=== PATIENT | female | born 1980 | race Caucasian/White ===

== ENCOUNTER 2017-10-18 17:43 | Inpatient (IN) | payer OTHER ==
[~2017-10-18] VITALS: Ht 165.1 cm; Wt 67.5 kg
[2017-10-18 19:55] VITALS: BP 115/63; RESP 20
[2017-10-18 19:58] VITALS: PULSE 46
[2017-10-18 20:01] VITALS: PULSE 50
[2017-10-18 20:07] VITALS: PULSE 40
[2017-10-18] MEDS ORDERED: morphine 2 MG INJ IV PRN (20:30)
[2017-10-18] MEDS ORDERED: ONDANSETRON 4 MG INJ ONE (20:37)
[2017-10-18 21:27] LABS: BASOPHILS % 0.1 % (0.0-2.0); EOSINOPHILS % 0.2 % (0.0-7.0); HEMATOCRIT 39.7 % (37.0-47.0); HEMOGLOBIN 13.6 g/dl (12.0-16.0); LYMPHOCYTES # 1.2 10^3/ul (0.8-2.9); LYMPHOCYTES % 13.9 % (15.0-51.0); MEAN CORPUSCULAR HEMOGLOBIN 31.9 pg (29.0-33.0); MEAN CORPUSCULAR HGB CONC 34.3 g/dl (32.0-37.0); MEAN PLATELET VOLUME 12.6 fl (7.4-10.4); MONOCYTE # 0.4 10^3/ul (0.3-0.9); MONOCYTES % 4.2 % (0.0-11.0); NEUTROPHIL # 6.9 10^3/ul (1.6-7.5); NEUTROPHILS % 81.4 % (39.0-77.0); PLATELET COUNT 249 10^3/UL (140-415); RED BLOOD COUNT 4.27 10^6/ul (4.20-5.40); RED CELL DISTRIBUTION WIDTH 12.7 % (11.5-14.5); WHITE BLOOD COUNT 8.5 10^3/ul (4.8-10.8)
[2017-10-18 22:01] LABS: ALANINE AMINOTRANSFERASE 38 IU/L (13-69); ALBUMIN/GLOBULIN RATIO 1.48; ALKALINE PHOSPHATASE 55 IU/L (42-121); ANION GAP 13 (8-16); ASPARTATE AMINO TRANSFERASE 24 IU/L (15-46); BILIRUBIN,INDIRECT 0.4 mg/dl (0-1.1); BILIRUBIN,TOTAL 0.4 mg/dl (0.2-1.3); BLOOD UREA NITROGEN 9 mg/dl (7-20); CALCIUM 8.9 mg/dl (8.4-10.2); CARBON DIOXIDE 25 mmol/L (21-31); CHLORIDE 106 mmol/L (97-110); CHOL/HDL RATIO 3.1 RATIO; CHOLESTEROL 181 mg/dl (100-200); CREATININE 0.68 mg/dl (0.44-1.00); GLUCOSE 93 mg/dl (70-220); HDL CHOLESTEROL 58 mg/dl (34-82); POTASSIUM 4.2 mmol/L (3.5-5.1); SODIUM 140 mmol/L (135-144); TOTAL PROTEIN 6.7 g/dl (6.1-8.1); TRIGLYCERIDES 49 mg/dl (0-149)
[2017-10-18 22:02] VITALS: Ht 165.1 cm; Wt 67.5 kg
[2017-10-18 22:13] LABS: TROPONIN-I < 0.012 ng/ml (0.00-0.12)
[2017-10-18 23:46] VITALS: BP 101/64; RESP 20
[2017-10-19] VITALS (12 sets, daily range): BP systolic 93–109; BP diastolic 60–82; PULSE 40–50; RESP 16–20
[2017-10-19] MEDS ORDERED: ONDANSETRON 4 MG INJ ONE (00:53)
[2017-10-19] MEDS: DEXTROSE 5%-0.45% NACL 1,000 ML IV SCH ×3 (02:15→15:50)
[2017-10-19] MEDS ORDERED: METOCLOPRAMIDE 10 MG INJ IV PRN (02:30)
[2017-10-19] MEDS ORDERED: ONDANSETRON INJ 8 MG in DEXTROSE 5% 50 ML IV PRN ×2 (02:30→05:30)
[2017-10-19] MEDS: ONDANSETRON 4 MG INJ IV PRN ×2 (05:16→05:17)
[2017-10-19 07:30] LABS: BASOPHILS % 0.2 % (0.0-2.0); EOSINOPHILS # 0.1 10^3/ul (0.0-0.5); EOSINOPHILS % 1.1 % (0.0-7.0); HEMATOCRIT 38.4 % (37.0-47.0); HEMOGLOBIN 12.7 g/dl (12.0-16.0); LYMPHOCYTES # 2.6 10^3/ul (0.8-2.9); MEAN CORPUSCULAR HEMOGLOBIN 31.2 pg (29.0-33.0); MEAN CORPUSCULAR HGB CONC 33.1 g/dl (32.0-37.0); MEAN CORPUSCULAR VOLUME 94.3 fl (82.0-101.0); MEAN PLATELET VOLUME 12.6 fl (7.4-10.4); MONOCYTE # 0.6 10^3/ul (0.3-0.9); MONOCYTES % 7.5 % (0.0-11.0); NEUTROPHIL # 4.8 10^3/ul (1.6-7.5); NEUTROPHILS % 58.8 % (39.0-77.0); PLATELET COUNT 214 10^3/UL (140-415); RED BLOOD COUNT 4.07 10^6/ul (4.20-5.40); RED CELL DISTRIBUTION WIDTH 12.8 % (11.5-14.5); WHITE BLOOD COUNT 8.2 10^3/ul (4.8-10.8)
[2017-10-19 07:48] LABS: ALBUMIN 3.4 g/dl (3.3-4.9); ALBUMIN/GLOBULIN RATIO 1.21; BILIRUBIN,INDIRECT 0.6 mg/dl (0-1.1); BILIRUBIN,TOTAL 0.6 mg/dl (0.2-1.3); CALCIUM 8.6 mg/dl (8.4-10.2); CHOL/HDL RATIO 3.2 RATIO; CREATININE 0.77 mg/dl (0.44-1.00); POTASSIUM 3.9 mmol/L (3.5-5.1); TOTAL PROTEIN 6.2 g/dl (6.1-8.1)
[2017-10-19 08:13] LABS: THYROID STIMULATING HORMONE 1.84 MIU/L (0.465-4.680)
--- NOTE | 2017-10-19 10:24 | HP ---
Date/Time of Note Date/Time of Note DATE: 10/19/17 TIME: 10:16 Assessment/Plan VTE Prophylaxis VTE Prophylaxis Intervention: heparin Lines/Catheters IV [facility]from [facility] Saline Lock Urinary Cath still in place: No Assessment/Plan Assessment/Plan 1. Syncope, most likely secondary to bradycardia -Questionable sick sinus syndrome -Continue telemetry monitoring -Check thyroid profile -Trend troponin -Obtain 2D echo to see if there is any structural heart disease contributing to her syncope -Cardiology consult HPI/ROS Admit Date/Time Admit Date/Time Oct 18, 2017 at 19:30 Hx of Present Illness This is a 37-year-old female with no significant past medical history who initially presented to [place] complaining of loss of consciousness. She was transferred to [facility] for insurance reasons. She said that she had 2 episodes of syncope over a period of 1 months. The first 1 occurred a month ago while she was brushing her teeth in the bathroom. At that time and she found herself on the floor. She does not know for sure for how long she had a loss of consciousness. The next episode occurred yesterday. She said she was standing up talking to a scrap sorter or some type of a workman in at her house when she felt slightly lightheaded and had a brief loss of consciousness lasting a few seconds. She denied chest pain, palpitations, shortness of breath. She does not smoke marijuana occasionally otherwise she denied any other illicit drug use. She also denied being under the influence of alcohol at that time. At [place], EKG shows sinus bradycardia with a heart rate of 47. First troponin was negative. CBC and CMP were within normal limits except slightly elevated WBC of 10.7. Chest x-ray was clear. Once admitted here, she was noted to be bradycardic with the lowest heart rate being 40. PMH/Family/Social Social History Smoking Status: Former smoker Exam/Review of Systems Vital Signs Vitals Vital Signs Date Time Temp Pulse Resp B/P Pulse Ox O2 Delivery O2 Flow Rate FiO2 10/19/17 08:00 45 10/19/17 07:59 97.4 18 109/64 98 Intake and Output 10/18/17 10/18/17 10/19/17 14:59 22:59 06:59 Intake Total 625 ml Balance 625 ml Exam Constitutional: alert, oriented, well developed Head: atraumatic, normocephalic Eyes: EOMI, PERRL Respiratory: clear to auscultation, normal air movement Cardiovascular: other (Bradycardic with regular rhythm) Gastrointestinal: non-tender, soft Extremities: normal pulses Labs Result Diagram: 10/19/1762810/19/17628 Medications Medications Current Medications Morphine Sulfate (morphine) 2 mg Q4H PRN IV pain; Start 10/18/17 at 20:30 Ondansetron HCl (Zofran Inj) 4 mg Q6H PRN IV NAUSEA AND/OR VOMITING Last administered on 10/19/17 05:17; Admin Dose 4 MG; Start 10/18/17 at 20:30 Metoclopramide HCl 10 mg 10 mg Q6H PRN IV N/V; Start 10/19/17 at 02:30 Dextrose/Sodium Chloride 1,000 ml @ 75 mls/hr [id number] IV Last administered on 10/19/17 02:15; Admin Dose 75 MLS/HR; Start 10/19/17 at 02:30 Ondansetron HCl/ Dextrose (Zofran Inj/D5W) 54 ml @ 108 mls/hr Q6H PRN IV NAUSEA AND/OR VOMITING; Start 10/19/17 at 05:30 DANIEL RODRIGUEZ MD Oct 19, 2017 10:24
--- NOTE | 2017-10-19 14:33 | PN ---
Date/Time of Note Date/Time of Note DATE: 10/19/17 TIME: 14:31 Assessment/Plan VTE Prophylaxis VTE Prophylaxis Intervention: SCD's Lines/Catheters IV C[facility]ter Type (from [facility]): Saline Lock Urinary Cath still in place: No Assessment/Plan Chief Complaint/Hosp Course Assessment and plan 1. Syncope suspect secondary to bradycardia. Continue telemetry monitoring. Secure Software Assessor follow. Follow-up echocardiogram. 2. Bradycardia. Etiology unknown. We will get hearing aid assistant to follow. Will follow up. Disposition and plan: Continue telemetry monitoring. Follow-up with hearing aid assistant or conditions. Discussed plan of care with Dr. Blackwell Problems: Subjective 24 Hr Interval Summary Free Text/Dictation Reports having some nausea. No other reports of syncope at this time. Exam/Review of Systems Vital Signs Vitals Vital Signs Date Time Temp Pulse Resp B/P Pulse Ox O2 Delivery O2 Flow Rate FiO2 10/19/17 12:01 98.4 50 16 93/60 97 Intake and Output 10/18/17 10/18/17 10/19/17 15:00 23:00 07:00 Intake Total 625 ml Balance 625 ml Exam Constitutional: alert, oriented Psych: nl mood/affect Head: normocephalic Eyes: nl conjunctiva Neck: non-tender, supple Respiratory: clear to auscultation Cardiovascular: other (Bradycardia) Gastrointestinal: non-tender, soft Musculoskeletal: nl extremities to inspection, nl gait and stance Neurological: SOAKING ROOM OPERATOR II-XII intact, nl mental status, nl speech Skin: nl turgor Results Result Diagram: 10/19/17 0629 10/19/17 0629 Results 24 hrs Laboratory Tests Test 10/18/17 20:59 10/19/17 03:00 10/19/17 06:29 White Blood Count 8.5 8.2 Red Blood Count 4.27 4.07 L Hemoglobin 13.6 12.7 Hematocrit 39.7 38.4 Mean Corpuscular Volume 93.0 94.3 Mean Corpuscular Hemoglobin 31.9 31.2 Mean Corpuscular Hemoglobin Concent 34.3 33.1 Red Cell Distribution Width 12.7 12.8 Platelet Count 249 214 Mean Platelet Volume 12.6 H 12.6 H Neutrophils % 81.4 H 58.8 Lymphocytes % 13.9 L 32.0 Monocytes % 4.2 7.5 Eosinophils % 0.2 1.1 Basophils % 0.1 0.2 Nucleated Red Blood Cells % 0.0 0.0 Neutrophils # 6.9 4.8 Lymphocytes # 1.2 2.6 Monocytes # 0.4 0.6 Eosinophils # 0.0 0.1 Basophils # 0.0 0.0 Nucleated Red Blood Cells # 0.0 0.0 Sodium Level 140 140 Potassium Level 4.2 3.9 Chloride Level 106 107 Carbon Dioxide Level 25 24 Anion Gap 13 13 Blood Urea Nitrogen 9 9 Creatinine 0.68 0.77 Glucose Level 93 95 Hemoglobin A1c 5.1 5.0 Calcium Level 8.9 8.6 Total Bilirubin 0.4 0.6 Direct Bilirubin 0.00 0.00 Indirect Bilirubin 0.4 0.6 Aspartate Amino Transf (AST/SGOT) 24 30 Alanine Aminotransferase (ALT/SGPT) 38 33 Alkaline Phosphatase 55 42 Troponin I < 0.012 < 0.012 Total Protein 6.7 6.2 Albumin 4.0 3.4 Globulin 2.70 2.80 Albumin/Globulin Ratio 1.48 1.21 Triglycerides Level 49 63 Cholesterol Level 181 135 LDL Cholesterol, Calculated 113 81 HDL Cholesterol 58 41 # Cholesterol/HDL Ratio 3.1 3.2 Thyroid Stimulating Hormone (TSH) 1.350 1.840 Free Thyroxine 1.25 Medications Medications Current Medications Morphine Sulfate (morphine) 2 mg Q4H PRN IV pain; Start 10/18/17 at 20:30 Ondansetron HCl (Zofran Inj) 4 mg Q6H PRN IV NAUSEA AND/OR VOMITING Last administered on 10/19/17 05:17; Admin Dose 4 MG; Start 10/18/17 at 20:30 Metoclopramide HCl 10 mg 10 mg Q6H PRN IV N/V; Start 10/19/17 at 02:30 Dextrose/Sodium Chloride 1,000 ml @ 75 mls/hr [id number] IV Last administered on 10/19/17 02:15; Admin Dose 75 MLS/HR; Start 10/19/17 at 02:30 Ondansetron HCl/ Dextrose (Zofran Inj/D5W) 54 ml @ 108 mls/hr Q6H PRN IV NAUSEA AND/OR VOMITING; Start 10/19/17 at 05:30 KISHA MCGRAW Oct 19, 2017 14:33
--- NOTE | 2017-10-19 15:05 | RADRPT ---
PROCEDURE: US carotid arteries. CLINICAL INDICATION: Dizziness. Syncope. TECHNIQUE: Multiple sonographic images of the carotid arteries and vertebral arteries were obtaine d utilizing saldivar scale, duplex, and color-flow imaging. The images were reviewed on a PACS workstati on. COMPARISON: No prior studies are available for comparison. FINDINGS: Evaluation of the right carotid bifurcation region reveals mild atherosclerotic disease. Evaluation of the left carotid bifurcation region reveals mild atherosclerotic disease. There is antegrade flow within the vertebral arteries bilaterally. RIGHT CAROTID MEASUREMENTS: Common Carotid [id number] (cm/sec) Internal Carotid Artery 79 (cm/sec) External Carotid Artery 98 (cm/sec) Vertebral Artery 50 (cm/sec) Internal Carotid/Common Carotid0.9 LEFT CAROTID MEASUREMENTS: Common Carotid [id number] (cm/sec) Internal Carotid Artery 93 (cm/sec) External Carotid Artery 106 (cm/sec) Vertebral Artery 56 (cm/sec) Internal Carotid/Common Carotid1.2 Validated velocity measurements with angiographic measurements. Velocity criteria are extrapolated f rom diameter data as defined by the Society of Radiologists in Ultrasound Consensus Conference. Radi ology 2003; 229;340-346. This study does indirectly reference the measurement of the distal ICA milton meter as the denominator for stenosis measurement. IMPRESSION: 1. Less than 50% stenosis bilaterally in the internal carotid arteries. 2. Normal antegrade flow in the vertebral arteries bilaterally. RPTAT: QQ SRU Consensus Conference Criteria for the Diagnosis of Carotid Artery Stenosis* Degree of Stenosis, % ICA PSV, cm/sec Plaque Estimate, % ICA/CCA PSV Ratio Normal <125 None <2.0 <50 <125 <50 <2.0 50 69 125-230 >50 2.0-4.0 >70 but less than near occlusion >230 >50 <4.0 Near occlusion High, low, or undetectable Visible Variable Total occlusion Undetectable Visible, no detectable lumen Not applicable *Cartoid artery stenosis: saldivar-scale and Doppler US diagnosis. Society of Radiologists in Ultrasound Consensus Conference. Radiology 2003; 229: 340-346 .Bubba Crystal MD, Date Time Electronically viewed and signed by .Bubba Crystal MD, on 10/19/2017 15:05 .R/
--- NOTE | 2017-10-19 16:28 | RADRPT ---
Echocardiogram Report Patient Name: FARHEEN MAGANA Gender: Female Date: 1980 Study Date: 19-Oct-2017 Revenue Audit Clerk: Francisco Elliott [facility] Location: [facility] Ref. Physician: DANIEL RODRIGUEZ Quality: Good Procedures: Transthoracic echocardiogram with complete 2D, M-Mode, and doppler examination. Indications: Bradycardia. Syncope. 2D/M Mode Doppler Measurement Value Normal Ranges Measurement Value Normal Ranges LVIDd 2D 4.3 3.5 - 5.6 cm AV Peak Justin 1.3 m/sec LVIDs 2D 2.6 2.1 - 4.1 cm AV Peak PG 6.3 mmHg LVPWd 2D 1.0 0.6 - 1.1 cm LVOT Peak Justin 1.1 m/sec IVSd 2D 1.0 0.6 - 1.1 cm LVOT Peak PG 5.0 mmHg AoR Diam 2D 2.5 2.0 - 3.7 cm MV E Peak Justin 0.9 m/sec EDV 2D 82.7 cm3 MV A Peak Justin 0.4 m/sec ESV 2D 16.9 cm3 MV E/A 2.3 LA Dimen 2D 3.4 2.3 - 4.0 cm MV Decel Time 211 msec MV Decel Cabell 4 MV E/A 2.3 TR Peak Justin 2.2 m/sec TR Peak PG 18.6 mmHg RVSP 22.0 mmHg Findings Left Ventricle: Normal left ventricular systolic function. Normal left ventricular cavity size. Normal left ventricular wall thickness. Ejection fraction is visually estimated at 6065 %. Tissue Doppler/Mitral Doppler indices are within normal limits. Right Ventricle: Normal right ventricular size. Normal right ventricular systolic function. Left Atrium: The left atrium is normal in size. Right Atrium: The right atrium is normal in size. Mitral Valve: Normal appearance and function of the mitral valve with trace physiologic regurgitation. Aortic Valve: Normal appearance of the aortic valve. No significant aortic stenosis or insufficiency. Tricuspid Valve: Normal appearance of the tricuspid valve. Estimated peak PA systolic pressure 22 mmHg. There is trace tricuspid regurgitation. Pulmonic Valve: Normal pulmonic valve appearance. Pericardium: Normal pericardium with no significant pericardial effusion. Aorta: Normal aortic root. IVC: Normal size and normal respiratory collapse consistent with normal right atrial pressure. Conclusions 1.The left ventricle is normal in size and systolic function. 2.Estimated left ventricular ejection fraction of 60-65%. Electronically Signed By: Luis Felipe Juarez 19-Oct-2017 16:28:18 -0800 Patient Name: FARHEEN MAGANA Study Date: 19-Oct-2017 [id number]
--- NOTE | 2017-10-19 19:39 | CONS ---
Date/Time of Note Date/Time of Note DATE: 10/19/17 TIME: 19:29 Assessment/Plan Assessment/Plan Chief Complaint/Hosp Course Assessment: Syncope - appears to be vagally mediated based on symptoms, uncertain trigger Sinus bradycardia - asymptomatic since admission, do not believe that sinus node dysfunction is the cause of her syncope, would not recommend permanent pacemaker at this time Recommendations: -echocardiogram normal -no additional cardiac work up at this time -can consider outpatient event monitor if recurrent symptoms Problems: Consultation Date/Type/Reason Admit Date/Time Oct 18, 2017 at 19:30 Type of Consultation: Cardiology Reason for Consultation syncope Hx of Present Illness The patient is a 37 year-old female with no significant past medical history who presented to [place] after a syncopal episode and was transferred to [facility] for further work up as she is not a [place] member. She describes feeling nauseous, lightheaded, and sweaty while talking to the lace stripper in her bathroom at home. She subsequently laid down on the floor and passed out. She previously had an episode of syncope two months ago, although she reports that she was ill at that time. On presentation to [place], her EKG showed sinus bradycardia at 47 bpm, but was otherwise normal. On manager biostatistics since admission, she has been in normal sinus rhythm and sinus bradycardia down to 40 bpm. She has remained asymptomatic. 14 point review of systems negative other than per HPI. Past Medical History Medical History: no pertinent history Past Surgical History Breast augmentation Wrist surgery secondary to fracture Family History Significant Family History: no pertinent family hx (denies family history of sudden cardiac ) Social History Alcohol Use: occasionally Smoking Status: Former smoker Drug Use: marijuana Exam/Review of Systems Vital Signs Vitals Vital Signs Date Time Temp Pulse Resp B/P Pulse Ox O2 Delivery O2 Flow Rate FiO2 10/19/17 16:00 48 10/19/17 15:46 97.9 18 106/82 98 Intake and Output 10/18/17 10/18/17 10/19/17 15:00 23:00 07:00 Intake Total 625 ml Balance 625 ml Exam Constitutional: alert, well developed Psych: nl mood/affect, no complaints Head: atraumatic, normocephalic Eyes: nl conjunctiva, nl lids ENMT: nl external ears & nose, nl nasal mucosa & septum Neck: non-tender, supple, No jvd Respiratory: clear to auscultation, normal air movement Cardiovascular: regular rate and rhythm Gastrointestinal: non-tender, soft Musculoskeletal: nl extremities to inspection Extremities: No clubbing, No cyanosis, No edema Neurological: nl mental status, nl speech Skin: nl turgor Results Result Diagram: 10/19/17 0629 10/19/17 0629 Results 24 hrs Laboratory Tests Test 10/18/17 20:59 10/19/17 03:00 10/19/17 06:29 White Blood Count 8.5 8.2 Red Blood Count 4.27 4.07 L Hemoglobin 13.6 12.7 Hematocrit 39.7 38.4 Mean Corpuscular Volume 93.0 94.3 Mean Corpuscular Hemoglobin 31.9 31.2 Mean Corpuscular Hemoglobin Concent 34.3 33.1 Red Cell Distribution Width 12.7 12.8 Platelet Count 249 214 Mean Platelet Volume 12.6 H 12.6 H Neutrophils % 81.4 H 58.8 Lymphocytes % 13.9 L 32.0 Monocytes % 4.2 7.5 Eosinophils % 0.2 1.1 Basophils % 0.1 0.2 Nucleated Red Blood Cells % 0.0 0.0 Neutrophils # 6.9 4.8 Lymphocytes # 1.2 2.6 Monocytes # 0.4 0.6 Eosinophils # 0.0 0.1 Basophils # 0.0 0.0 Nucleated Red Blood Cells # 0.0 0.0 Sodium Level 140 140 Potassium Level 4.2 3.9 Chloride Level 106 107 Carbon Dioxide Level 25 24 Anion Gap 13 13 Blood Urea Nitrogen 9 9 Creatinine 0.68 0.77 Glucose Level 93 95 Hemoglobin A1c 5.1 5.0 Calcium Level 8.9 8.6 Total Bilirubin 0.4 0.6 Direct Bilirubin 0.00 0.00 Indirect Bilirubin 0.4 0.6 Aspartate Amino Transf (AST/SGOT) 24 30 Alanine Aminotransferase (ALT/SGPT) 38 33 Alkaline Phosphatase 55 42 Troponin I < 0.012 < 0.012 Total Protein 6.7 6.2 Albumin 4.0 3.4 Globulin 2.70 2.80 Albumin/Globulin Ratio 1.48 1.21 Triglycerides Level 49 63 Cholesterol Level 181 135 LDL Cholesterol, Calculated 113 81 HDL Cholesterol 58 41 # Cholesterol/HDL Ratio 3.1 3.2 Thyroid Stimulating Hormone (TSH) 1.350 1.840 Free Thyroxine 1.25 Medications Medications Current Medications Morphine Sulfate (morphine) 2 mg Q4H PRN IV pain; Start 10/18/17 at 20:30 Ondansetron HCl (Zofran Inj) 4 mg Q6H PRN IV NAUSEA AND/OR VOMITING Last administered on 10/19/17 05:17; Admin Dose 4 MG; Start 10/18/17 at 20:30 Metoclopramide HCl 10 mg 10 mg Q6H PRN IV N/V; Start 10/19/17 at 02:30 Dextrose/Sodium Chloride 1,000 ml @ 75 mls/hr [id number] IV Last administered on 10/19/17 02:15; Admin Dose 75 MLS/HR; Start 10/19/17 at 02:30 Ondansetron HCl/ Dextrose (Zofran Inj/D5W) 54 ml @ 108 mls/hr Q6H PRN IV NAUSEA AND/OR VOMITING; Start 10/19/17 at 05:30 ABBY AKERS MD Oct 19, 2017 19:39
[2017-10-20] VITALS (8 sets, daily range): BP systolic 97–108; BP diastolic 47–67; PULSE 42–53; RESP 16–20
[2017-10-20] MEDS: DEXTROSE 5%-0.45% NACL 1,000 ML IV SCH (06:10)
[2017-10-20 07:29] LABS: BASOPHILS % 0.2 % (0.0-2.0); EOSINOPHILS # 0.1 10^3/ul (0.0-0.5); EOSINOPHILS % 1.7 % (0.0-7.0); HEMATOCRIT 38.6 % (37.0-47.0); HEMOGLOBIN 12.7 g/dl (12.0-16.0); LYMPHOCYTES # 2.3 10^3/ul (0.8-2.9); LYMPHOCYTES % 36.1 % (15.0-51.0); MEAN CORPUSCULAR HEMOGLOBIN 31.1 pg (29.0-33.0); MEAN CORPUSCULAR HGB CONC 32.9 g/dl (32.0-37.0); MEAN CORPUSCULAR VOLUME 94.4 fl (82.0-101.0); MEAN PLATELET VOLUME 12.4 fl (7.4-10.4); MONOCYTE # 0.5 10^3/ul (0.3-0.9); MONOCYTES % 7.3 % (0.0-11.0); NEUTROPHIL # 3.4 10^3/ul (1.6-7.5); NEUTROPHILS % 54.5 % (39.0-77.0); PLATELET COUNT 207 10^3/UL (140-415); RED BLOOD COUNT 4.09 10^6/ul (4.20-5.40); RED CELL DISTRIBUTION WIDTH 12.7 % (11.5-14.5); WHITE BLOOD COUNT 6.3 10^3/ul (4.8-10.8)
[2017-10-20 07:53] LABS: CALCIUM 8.8 mg/dl (8.4-10.2); CREATININE 0.74 mg/dl (0.44-1.00); POTASSIUM 4.2 mmol/L (3.5-5.1)
--- NOTE | 2017-10-20 13:39 | DS ---
Date/Time of Note Date/Time of Note DATE: 10/20/17 TIME: 13:34 Discharge Summary Admission/Discharge Info Admit Date/Time Oct 18, 2017 at 19:30 Discharge Date/Time Discharge Diagnosis 1. Syncope - appears to be vagally mediated based on symptoms, uncertain trigger 2. Sinus bradycardia - asymptomatic since admission, do not believe that sinus node dysfunction is the cause of her syncope, would not recommend permanent pacemaker at this time per cardiology Patient Condition: Good Consults lisa Juarez MD-cardiology Hospital Course The patient is a 37 year-old female with no significant past medical history who presented to [place] after a syncopal episode and was transferred to [facility] for further work up as she is not a [place] member. She describes feeling nauseous, lightheaded, and sweaty while talking to the package designer in her bathroom at home. She subsequently laid down on the floor and passed out. She previously had an episode of syncope two months ago, although she reports that she was ill at that time. On presentation to [place], her EKG showed sinus bradycardia at 47 bpm, but was otherwise normal. On awake overnight monitor since admission, she has been in normal sinus rhythm and sinus bradycardia down to 40 bpm. She has remained asymptomatic. Echocardiography and carotid ultrasound both unremarkable, TSH 1.84. The syncope is considered vasovagal. She had sinus bradycardia but awake overnight monitor does no feel it is the cause of her syncope spells. Patient is discharged home and she will follow up0 with cardiology and PCP in office. Home Meds No Active Prescriptions or Reported Meds Primary Care Provider Not On Staff Doctor Pending Labs Laboratory Tests Test 10/20/17 06:56 White Blood Count 6.310^3/ul (4.8-10.8) Red Blood Count 4.0910^6/ul (4.20-5.40) Hemoglobin 12.7g/dl (12.0-16.0) Hematocrit 38.6% (37.0-47.0) Mean Corpuscular Volume 94.4fl (82.0-101.0) Mean Corpuscular Hemoglobin 31.1pg (29.0-33.0) Mean Corpuscular Hemoglobin Concent 32.9g/dl (32.0-37.0) Red Cell Distribution Width 12.7% (11.5-14.5) Platelet Count 63888^3/UL (140-415) Mean Platelet Volume 12.4fl (7.4-10.4) Neutrophils % 54.5% (39.0-77.0) Lymphocytes % 36.1% (15.0-51.0) Monocytes % 7.3% (0.0-11.0) Eosinophils % 1.7% (0.0-7.0) Basophils % 0.2% (0.0-2.0) Nucleated Red Blood Cells % 0.0/100WBC (0.0-0.0) Neutrophils # 3.410^3/ul (1.6-7.5) Lymphocytes # 2.310^3/ul (0.8-2.9) Monocytes # 0.510^3/ul (0.3-0.9) Eosinophils # 0.110^3/ul (0.0-0.5) Basophils # 0.010^3/ul (0.0-0.1) Nucleated Red Blood Cells # 0.010^3/ul (0.0-0.0) Sodium Level 142mmol/L (135-144) Potassium Level 4.2mmol/L (3.5-5.1) Chloride Level 107mmol/L (97-110) Carbon Dioxide Level 29mmol/L (21-31) Anion Gap 10 (8-16) Blood Urea Nitrogen 8mg/dl (7-20) Creatinine 0.74mg/dl (0.44-1.00) Glucose Level 116mg/dl (70-220) Calcium Level 8.8mg/dl (8.4-10.2) NAHUN SHAH MD Oct 20, 2017 13:39
== END 2017-10-20 14:20 | disposition home or self-care (01) | DRG 312 ==
LOC: TEL 19:30
PROVIDERS: ADMIT Internal Medicine; ATTEND Internal Medicine
DX: R55 Syncope and collapse (principal); R00.1 Bradycardia, unspecified; Z87.891 Personal history of nicotine dependence
CPT/HCPCS: 80048; 80053; 80061; 83036; 84439; 84443; 84484; 85025; 93306; 93880; J2405; J7042